=== PATIENT | male | born 1960 | race Caucasian/White ===

== ENCOUNTER 2020-04-21 12:55 | Emergency (ER) | payer OTHER ==
[~2020-04-21 12:55] MED LIST: ACET325T26 PO; CYCL-259 PO; ENAL10TA9 PO; ENOX40SY4 SQ; HYDR-3241 PO; INSU100I11 SQ-INSULIN; INSU100I13 SQ-INSULIN; MAGN400O7 PO; METF500T17 PO; SENN-193 PO; TRAM50TA2 PO; enalapril; glipizide; metformin; tramadol
--- NOTE | 2020-04-21 13:17 | NUR ---
THIS IS A 59 YEAR OLD MALE WHO WAS BIB BY [facility], [facility], PLEASE SEE CODE SHEET. PT AT 1300
[2020-04-21] MEDS ORDERED: CALCIUM CHLORIDE 13.6 MEQ/10 ML ONE (13:19)
[2020-04-21] MEDS ORDERED: CODE BLUE RESPONSE XX ONE (13:19)
[2020-04-21] MEDS ORDERED: SODIUM BICARB 8.4%, 50ML SYRINGE ONE (13:19)
[2020-04-21] MEDS ORDERED: EPINEPHRINE SYRINGE 0.1 MG/ML, 10ML ONE (13:19)
--- NOTE | 2020-04-21 13:54 | NUR ---
ARISTEO BRIGGS AT BS, INCREASE EMOTIONAL SUPPORT GIVEN. [facility] AT [facility].
== END 2020-04-21 15:37 | disposition expired ==
LOC: ED 14:29
DX: I46.9 Cardiac arrest, cause unspecified (principal); R06.00 Dyspnea, unspecified; I95.9 Hypotension, unspecified; E11.9 Type 2 diabetes mellitus without complications; M06.9 Rheumatoid arthritis, unspecified
CPT/HCPCS: 92950; 99285